=== PATIENT | female | born 1960 | race African-American/Black ===

== ENCOUNTER 2018-10-21 14:40 | Inpatient (IN) | payer MEDICAID ==
[~2018-10-21] VITALS: Ht 165.1 cm; Wt 81.4 kg
[2018-10-21] VITALS (8 sets, daily range): BP systolic 90–131; BP diastolic 50–85; Ht 165.1 cm; Wt 81.4 kg
--- NOTE | ~2018-10-21 | HEMODYNAMI ---
PATIENT:FAUSTO DEL ROSARIO MEDICAL RECORD: [id number] : 56 LOCATION:[facility] D.2122 ADMISSION DATE: 10/21/18 Generatedon:10/22/201812:54 Patient name: FAUSTO DEL ROSARIO Patient #: [id number] SSN: : 1960 Date of study: 10/22/2018 Page: Of Hemodynamic Procedure Report Patient Data Patient Demographics Procedure consent was obtained First Name: FAUSTO Gender: Female Last Name: CARIN : 1960 Patient #: [id number] Age: 58 year(s) Race: Black Additional ID: [id number] Contact details Address: [address] [place] [address] STREET State: [place] City: [facility] Zip code: [address] Past Medical History Allergies: No known allergies Admission Admission Data Admission Date: 10/21/2018 Admission Time: 18:40 Arrival Date: 10/22/2018 Arrival Time: 0:00 Admit Source: Emergency Insurance Payor: None department Room #: D.2122 Height (in.): 64.96 BSA: 1.88 (m2) Height (cm.): 165 BMI: 29.75 (kg/m2) Weight (lbs.): 178.58 Weight (kg.): 81 Lab Results Lab Result Date: 10/22/2018 Lab Result Time: 5:49 Biochemistry Name Units Result Min Max BUN mg/dl 17 --(---*)-- 7 18 Creatinine mg/dl 1 --(--*-)-- 0.6 1.3 CBC Name Units Result Min Max Hematocrit % 32.4 *-(----)-- 42 54 Hemoglobin g/dl 11.1 *-(----)-- 13.5 17.5 Procedure Procedure Types Cath Procedure Diagnostic Procedure LHC LHC w/Coronaries Procedure Description Procedure Date Procedure Date: 10/22/2018 Procedure Start Time: 12:44 Procedure End Time: 12:51 Procedure Staff Name Function Ran Long MD Performing Physician Gricel Saxena RT Monitor Carl Cao RT Scrub Fred Moralez RN Nurse Gerardo Waddell RT Food And Beverage Manager Indication Angina Procedure Data Cath Procedure Fluoroscopy Diagnostic fluoroscopy Total fluoroscopy Time: 0.7 time: 0.7 min min Diagnostic fluoroscopy Total fluoroscopy dose: 227 dose: 227 mGy mGy Contrast Material Contrast Material Type Amount (ml) Isovue 300 43 Entry Location Entry Primary Successful Side Size Upsize Upsize Entry Closure Succes sful Closure Location (Fr) 1 (Fr) 2 (Fr) Remarks Device Remarks Femoral Right 5 Fr Exoseal artery Estimated blood loss: 5 ml Diagnostic catheters Device Type Used For End Catheter Placement MULTIPACK Pigtail 5 Fr Procedure catheter MULTIPACK JL 4.0 5Fr Procedure catheter MULTIPACK 3DRC 5Fr Procedure catheter Procedure Complications No complications Procedure Medications Medication Administration Route Dosage 0.9% NaCl I.V. 100 ml/hr Oxygen etCO2 Nasal cannula 2 l/min Heparin Flush Bag added to field 2 bags (1000units/500ml NS) Lidocaine 2% added to field 20 Versed I.V. 2 mg Fentanyl I.V. 100 mcg Hemodynamics Rest BSA: 1.88 (m2) HGB: 11.1 (g/dl) O2 Consumption: Estimated: 167.93 (ml/min) O2 Co nsumption indexed: Estimated:89.32 (ml/min/m) Heart Rate: 56 (bpm) Snapshots Pre Cath Intra NCS Post Cath Vital Signs Time Heart Resp SPO2 etCO2 NIBP Rhythm Pain Sedation Rate (ipm) (%) (mmHg) (mmHg) Status Level (bpm) 12:22:51 56 13 99 33.8 118/83(98) NSR 0 (11) 10(A) , No pain 12:27:01 56 13 99 38.3 105/81(91) NSR 0 (11) 10(A) , No pain 12:31:07 56 17 97 36 102/69(80) NSR 0 (11) 10(A) , No pain 12:35:15 57 17 97 37.6 98/66(82) NSR 0 (11) 10(A) , No pain 12:39:21 58 12 98 37.6 90/64(74) NSR 0 (11) 10(A) , No pain 12:43:24 56 14 98 38.3 96/63(79) NSR 0 (11) 9(A) , No pain 12:47:30 58 17 100 42 97/66(81) NSR 0 (11) 9(A) , No pain 12:51:36 55 8 99 40.6 96/63(80) NSR 0 (11) 9(A) , No pain Medications Time Medication Route Dose Verified Delivered Reason Notes Eff ectiveness by by 12:23:27 0.9% NaCl I.V. 100 Fred Fred Per ml/hr Naomy Moralez physician RN RN 12:23:38 Oxygen etCO2 2 Fred Fred for low 02 Nasal l/min Lorigan Lorigan sats cannula RN RN 12:23:51 Heparin Flush added 2 Fred Fred used for Bag to bags Lorigan Lorigan procedure (1000units/500ml field RN RN NS) 12:24:01 Lidocaine 2% added 20ml Fred Fred for local to vial Lorigan Lorigan anesthetic field RN RN 12:43:53 Versed I.V. 2 mg Fred Fred for Lorigan Lorigan sedation RN RN 12:44:01 Fentanyl I.V. 100 Fred Fred for mcg Lorigan Lorigan sedation RN electrician office Log Time Note 11:01:51 Informed consent obtained and on chart 11:04:03 Patient Weight : 178.58 lbs 11:04:07 Patient Height : 64.96 inches 11:04:12 Insurance Payor : None 11:04:14 Admit Source: Emergency department 11:04:16 Arrival Date: 10/22/2018 12:00:00 AM 11:05:13 Lab Result : Creatinine 1 mg/dl 11:05:13 Lab Result : BUN 17 mg/dl 11:05:13 Lab Result : Hematocrit 32.4 % 11:05:13 Lab Result : Hemoglobin 11.1 g/dl 11:06:00 ACC Patient presents with Non-STEMI CCS Anginal Class 4--Inability to carry out any physical activity w/o angina. Angina may occur at rest. 11:06:05 ACCPatient has been prescribed/administered the following anti-anginal medication within the last 2 weeks: None 11:06:08 Procedure Status Urgent Heart Cath (IP). 11:06:11 Time tracking: Regular hours (M-F 7:00 - 5:00) 11:06:15 Plan of Care:Hemodynamics will remain stable., Cardiac rhythm will remain stable., Comfort level will be maintained., Respiratory function will remain adequate., Patient/ family verbilizes understanding of procedure., Procedure tolerated without complication., Recovers from procedure without complications.. 11:06:23 H&P Date Dictated: 10/22/2018 Within 30 days and on chart.. 11:55:14 Carl Floreser RT(R) sent for patient. Start room use. 12:08:13 Diagnostic Cath Status : Urgent 12:08:53 Indication : Angina 12:10:16 Patient received from Med II to CCL 1 Alert and oriented. Tansferred to table in Supine position. 12:10:32 Warm blankets applied, and josé hugger turned on for patient comfort. 12:10:34 Correct patient and procedure confirmed by team. 12:10:36 ECG and BP/O2 sat monitors applied to patient. 12:10:43 Pre-procedure instructions explained to patient. 12:10:45 Pre-op teaching completed and patient verbalized understanding. 12:10:48 Family unavailable. 12:10:50 Patient NPO since Midnight. 12:10:58 Patient allergic to No known allergies 12:11:00 Is the patient allergic to Iodine/contrast media? No. 12:21:52 Vital chart was started 12:21:54 Baseline sample Acquired. 12:22:00 Rhythm: sinus bradycardia 12:22:01 Full Disclosure recording started 12:22:11 Is patient on blood thinner?No 12:22:13 Patient diabetic? No. 12:22:22 Patient not . Patient is over age 55. 12:22:46 Previous problem with sedation/anesthesia? No ? 12:22:47 Snore? Yes 12:22:48 Sleep apnea? No 12:22:50 Deviated septum? No 12:22:50 Opens mouth fully? Yes 12:22:51 Sticks out tongue? Yes 12:22:54 Dentures? No ? 12:22:57 Pre procedure: right dorsailis pedis pulse 2+ Normal; easily identifiable; not easily obliterated 12:23:04 Patient pain scale 0/10 ?. 12:23:08 IV patent on arrival in left antecubital with 0.9% NaCl at [facility]. 12:23:11 Lab results completed and on chart. 12:23:27 0.9% NaCl 100 ml/hr I.V. was administered by Fred Moralez RN; Per physician; 12:23:34 Right groin area was prepped with chlora-prep and draped in sterile fashion 12:23:35 Alarms reviewed by R. N. 12:23:36 Sharps counted by scrub and verified by R.N. 12:23:38 Oxygen 2 l/min etCO2 Nasal cannula was administered by Fred Moralez RN; for low 02 sats; 12:23:51 Heparin Flush Bag (1000units/500ml NS) 2 bags added to field was administered by Fred Moralez RN; used for procedure; 12:24:01 Lidocaine 2% 20ml vial added to field was administered by Fred Moralez RN; for local anesthetic; 12:27:09 Use device set Femoral Dx 12:27:20 ACIST Syringe (88825) opened to sterile field. 12:27:20 Bag Decanter (2002S) opened to sterile field. 12:27:26 ACIST Hand Control (79061) opened to sterile field. 12:27:28 ACIST Manifold (05182) opened to sterile field. 12:27:30 Tegaderm 4 x 4 (1626W) opened to sterile field. 12:27:33 Medline Cath Pack ([id number]) opened to sterile field. 12:27:37 DIAGNOSTIC Multipack 5Fr catheter set (TS2013) opened to sterile field. 12:27:59 SHEATH 5FR Allred (HIQ542) opened to sterile field. 12:28:01 EMERALD Guide Wire (707-541) opened to sterile field. 12:36:37 Zero performed for pressure channel P1 12:40:51 --------ALL STOP TIME OUT------ 12:40:51 Final Timeout: patient, procedure, and site verified with staff and physician. All members of the team are in agreement. 12:40:53 Right groin site verified by team. 12:41:00 Fire Safety Assessment: A--An alcohol-based skin anteseptic being used preoperatively., C--Open oxygen or nitrous oxide is being used., D--An ESU, laser, or fiber-optic light is being used. 12:41:04 Physical assessment completed. ASA score P 2 - A patient with mild systemic disease as per Ran Long MD. 12:41:17 2) 60-89 Mildly reduced kidney function, and other findings (as for stage 1) point to kidney disease. 12:41:21 Maximum allowable contrast dose (3.7 X eGFR X 0.75)203 ml. 12:41:26 Sedation plan: IV Moderate Sedation Medication:Versed, Fentanyl 12:43:53 Versed 2 mg I.V. was administered by Fred Moralez RN; for sedation; 12:44:01 Fentanyl 100 mcg I.V. was administered by Fred Moralez RN; for sedation; 12:44:25 Procedure started. 12:44:40 Local anesthetic to right femoral artery with Lidocaine 2% by Ran Long MD.INITIAL ACCESS ONLY 12:45:25 A 5 Fr sheath was inserted into the Right Femoral artery 12:45:44 A MULTIPACK Pigtail 5 Fr catheter was advanced over the wire and used for Procedure. 12:46:00 LV gram done using YO 12:46:02 Injector settings: Ml/sec: 10, Volume: 20, 12:46:19 EF : 70 % 12:46:21 Catheter removed. 12:46:28 A MULTIPACK JL 4.0 5Fr catheter was advanced over the wire and used for Procedure. 12:47:16 LCA angiography performed. 12:47:20 Catheter removed. 12:47:26 A MULTIPACK 3DRC 5Fr catheter was advanced over the wire and used for Procedure. 12:47:55 RCA angiography performed. 12:48:01 Catheter removed. 12:48:16 ACCDominant side:Left 12:48:51 EXOSEAL 5Fr (EX500) opened to sterile field. 12:49:04 Sheath removed intact; hemostasis achieved with Exoseal to the Right Femoral artery. 12:49:06 Procedure ended.(Physican Out) 12:49:54 Fluoroscopy time 00.70 minutes. 12:49:58 Fluoroscopy dose: 227 mGy 12:49:58 Flurop Dose total: 227 12:50:03 Dose Area Product 13279 mGy/cm. 12:50:07 Contrast amount:Isovue 300 43ml. 12:50:09 Maximum allowable dose exceeded? No. 12:50:10 Sharps counted by scrub and verified by R.N. 12:50:13 Post-op/insertion site Right Femoral artery dressed using a 4 x 4 and Tegaderm. 12:50:16 Post-procedure physical assessment completed. ASA score P 2 - A patient with mild systemic disease as per Ran Long MD. 12:50:19 Post procedure rhythm: sinus bradycardia 12:50:22 Estimated blood loss: 5 ml 12:50:23 Post procedure instruction explained to patient.Patient verbalizes understanding. 12:50:24 Patient needs reinforcement of post procedure teaching. 12:51:14 Procedure and supply charges have been captured, reviewed, submitted and are correct. 12:51:17 Procedure Complication : No complications 12:51:20 Vital chart was stopped 12:51:22 See physician's report for complete and final results. 12:51:27 Report given to [facility]. 12:51:30 Patient transfered to [facility] with Bed. 12:51:32 Procedure ended. 12:51:32 Full Disclosure recording stopped 12:51:37 End room use (Document Last) Device Usage Item Name Manufacture Quantity Catalog Hospital Part Current Minimal L ot# / Number Charge Number Stock Stock Serial# Code ACIST Acist 1 57268 291621 664898 [id number] 20 Syringe Medical (95265) Systems Inc Bag Microtek 1 483599 39708 148715 5 Decanter Medical Inc. () ACIST Hand Acist 1 49831 474984 741934 950020 5 Control Medical (89671) Systems Inc ACIST Acist 1 34912 044875 931929 749908 5 Manifold Medical (07767) Systems Inc Tegaderm 4 3M 1 1626W 494148 779571 148099 5 x 4 (1626W) Medline Medline 1 [id number] 407956 38589 342351 5 Cath Pack ([id number]) DIAGNOSTIC Cardinal 1 DK3709 117487 75393 976644 30 Multipack Filement 5Fr catheter set (QQ7820) SHEATH 5FR Terumo 1 RXS923 187544 834590 314361 5 Allred (JMS678) EMERALD Cardinal 1 502-902 635671 162372 487755 5 Guide Wire Health (502-415) MULTIPACK Cardinal 1 515210 5 Pigtail 5 Health Fr catheter MULTIPACK Cardinal 1 963231 5 JL 4.0 5Fr Filement catheter MULTIPACK Cardinal 1 661063 5 3DRC 5Fr Health catheter EXOSEAL 5Fr Cardinal 1 EX500 648147 808199 707803 10 (EX500) Health Signature Audit [place] Stage Time Signature Unsigned Intra-Procedure 10/22/2018 Gricel Saxena 12:54:02 PM RT(R) Signatures Performing Physician : Signature : Ran Long MD Date : Time : Monitor : Gricel Saxena Signature : RT Date : Time : Nurse : Fred Moralez Signature : RN Date : Time : [place] [address] [place] [address]
[2018-10-21 15:11] LABS: BASOPHILS 0.4 % (0-2); EOSINOPHILS 0.3 % (0-7); HEMATOCRIT 39.7 % (36.0-48.0); HEMOGLOBIN 13.8 g/dL (12-16); IMMATURE GRANULOCYTES 0.5 % (0-5); LYMPHOCYTES 28.5 % (15-50); MCH 30.4 pg (26.0-34.0); MCHC 34.8 g/dL (31.0-37.0); MCV 87.4 fL (80.0-100.0); MONOCYTES 2.8 % (2-11); NEUTROPHILS 67.5 % (40-80); PLATELET COUNT 263 10x3/uL (130-400); RBC 4.54 10x6/uL (4.00-5.40); RDW 13.9 % (11.5-14.5); WBC 7.9 10x3/uL (4.8-10.8)
[2018-10-21 15:24] LABS: ALBUMIN 4.6 g/dL (3.4-5.0); ANION GAP 29.1 mmol/L (8-16); BILIRUBIN - TOTAL 0.52 mg/dL (0.2-1.3); CALCIUM 10.6 mg/dL (8.5-10.1); CARBON DIOXIDE 15.4 mmol/L (21.0-32.0); CREATININE - SERUM 2.3 mg/dL (0.6-1.3); MAGNESIUM - SERUM 2.1 mg/dL (1.8-2.4); POTASSIUM - SERUM 3.5 mmol/L (3.5-5.1); PROTEIN - SERUM 9.5 g/dL (6.4-8.2)
--- NOTE | 2018-10-21 16:07 | NUR ---
PT TRANSPORTED TO CT
[2018-10-21 16:12] LABS: APTT 23.9 SECONDS (22.8-39.4); INR 1.13 (0.85-1.17)
[2018-10-21 16:32] LABS: CREATINE KINASE 622 UL (21-215); MAGNESIUM - SERUM 2.1 mg/dL (1.8-2.4)
--- NOTE | 2018-10-21 16:36 | NUR ---
CRITICAL TROPONIN OF 0.290 AT THIS TIME, NOTIFIED BY LAB. EDP NOTIFIED.
--- NOTE | 2018-10-21 16:39 | NUR ---
REPROT GIVEN TO LOLITA OWUSU. PT MOVED TO E15
[2018-10-21 16:46] LABS: UDS - AMPHET NEGATIVE QUAL (NEGATIVE); UDS - BARB NEGATIVE QUAL (NEGATIVE); UDS - BENZO POSITIVE QUAL (NEGATIVE); UDS - COCAINE POSITIVE QUAL (NEGATIVE); UDS - OPIATE NEGATIVE QUAL (NEGATIVE); UDS - PCP NEGATIVE QUAL (NEGATIVE); UDS - THC NEGATIVE QUAL (NEGATIVE)
--- NOTE | 2018-10-21 16:48 | NUR ---
MOVED TO ER#15. ASSUMED CARE OF PT. PT ALERT TO PERSON AND TIME. SPEECH SLOW AND SOFT. ANDREWS INDEPEPDNENTLY. VSS.
[2018-10-21 16:53] LABS: APPEARANCE HAZY (CLEAR); BILIRUBIN NEGATIVE (NEGATIVE); COLOR DK YELLOW (YELLOW); GLUCOSE NEGATIVE (NEGATIVE); KETONE NEGATIVE (NEGATIVE); NITRITE NEGATIVE (NEGATIVE); PROTEIN 1+ mg/dL (NEGATIVE); SPECIFIC GRAVITY 1.025 (1.005-1.020); UROBILINOGEN NORMAL (NORMAL)
[2018-10-21 16:54] LABS: EPITHELIAL CELLS 0-5 /hpf (0-5); RED CELLS - URINE 0-5 /hpf (0-5); WHITE CELLS - URINE 0-5 /hpf (0-5)
[2018-10-21 16:55] LABS: BACTERIA MODERATE /hpf (NONE SEEN)
--- NOTE | 2018-10-21 18:11 | NUR ---
RESTIN GIN BED WITH EYES CLOSED AROUSES EASIOY WHEN NAME CALLED THEN RTNS TO JINNY[P
--- NOTE | 2018-10-21 19:10 | NUR ---
BS REPORT TO LOLITA CRUZ BY SBAR FORMAT
--- NOTE | 2018-10-21 19:46 | NUR ---
LAB CALLED TO REPORT CRICTAL LAB, CALLED ER TO INFORM NURSE ANTHONY BECAUSE PATIENT IS STILL IN ER AND SHE STATED SHE ALREADY GAVE REPORT TO DARWIN AND SHE WILL BE BRINGING HER UP SHORTLY. ASKED IS SHE WANTED TO INFORM DOCTOR AND SHE STATED THAT THE PATIENT IS ALREADY ADMITTED TO DR. ALMONTE. INFORMED MY CUTLET MAKER PORK JANE AND RECIEVING LOLITA GRANADOS.
--- NOTE | 2018-10-21 20:03 | NUR ---
PT ARRIVES VIA STRETCHER FROM ER TO BED LOW AND LOCKED AND CALL LIGHT IS PROVIDED PT IS LETHARGIC AT THIS TIME AND IS A FULL ASSIST OVER TO BED O2 APPLIED AT 2L ED AND FARZANEH WAS IN PT TO GRAVITY LCTA AND SKIN WARM AND DRY PULSES ARE INTACT VS 102/59 76 18 98.6 100% ON 2L
--- NOTE | 2018-10-21 20:13 | NUR ---
PT CONT TO BE LETHARGIC LIMITED HISTORY GIVEN BY PT AND UNKNOWN IF HISTORY IS ACURATE PT STATES SHE TAKES MEDS BUT WILL NOT STATE WHAT MEDS SHE TAKES AT THIS TIME
--- NOTE | 2018-10-21 20:25 | NUR ---
LACTIC ACID LEVEL 8.5. CALLED TO RACHAEL KAT. HE STATES TO KEEP AN EYES ON PT AND CALL IF PT IS NO MORE LETHARGIC AND CAN TALK OR IF THEIR IS ANY SIGNIFICANT CHANGE.
[2018-10-21 22:33] LABS: CKMB 19.4 U/L (0.0-3.6)
[2018-10-21 22:34] LABS: CREATINE KINASE 1717 UL (21-215)
[2018-10-21 22:37] LABS: TROPONIN-I 0.641 ng/mL (0.000-0.060)
--- NOTE | 2018-10-21 23:05 | NUR ---
RECIEVED PT'S TROPONIN I CRITICAL OF 0.641. RESULT CALLED TO [facility]. RACHAEL ORDERED CARDIAC ENZYMES LABS FOR AM. PERFORMED ANOTHER EKG AT THIS TIME. EKG NS WITH RIGH BBB. PT IS MORE ALERT NOW, BUT STILL APPEARS LETHARGIC. MOY INTACT. BANNANA BAG/NS INFUSING @ 125MLS/HR. NO S/S OF DISTRESS. VSS. WILL CPOC. CL WITHIN REACH, BED IN LOW, SR UP X2.
[2018-10-22] VITALS: BP 100/62
[2018-10-22 04:30] VITALS: BP 110/75
[2018-10-22 06:36] LABS: BASOPHILS 0.1 % (0-2); EOSINOPHILS 0 % (0-7); HEMATOCRIT 32.4 % (36.0-48.0); HEMOGLOBIN 11.1 g/dL (12-16); IMMATURE GRANULOCYTES 0.2 % (0-5); LYMPHOCYTES 24.3 % (15-50); MCH 29.6 pg (26.0-34.0); MCHC 34.3 g/dL (31.0-37.0); MCV 86.4 fL (80.0-100.0); MEAN PLATELET VOLUME 11.1 fL (7.4-10.4); MONOCYTES 11.9 % (2-11); NEUTROPHILS 63.5 % (40-80); RBC 3.75 10x6/uL (4.00-5.40); RDW 14.2 % (11.5-14.5); WBC 8.9 10x3/uL (4.8-10.8)
[2018-10-22 06:41] LABS: PLATELET COUNT 172 10x3/uL (130-400)
--- NOTE | 2018-10-22 06:50 | NUR ---
REPORT RECEIVED. SHE ANSWERS TO NAME. SHE IS ABLE TO TELL ME WHERE SHE IS AND FOLLOW ALL VERBAL COMMANDS TO MOVE EXT. F/C PATENT WITH YELLOW URINE DRAINING. RESP SHALLOW BUT EVEN. IV INFUSING IN LEFT HAND WITH SALINE LOCK IN RIGHT A/C. O2 ON AT 2 L/M PER N/C. CAREPLAN REVIEWED WITH SAFETY PRECAUTIONS IN PLACE. BED IN LOWEST POSITION AND LOCKED.
[2018-10-22 07:36] LABS: ALKALINE PHOSPHATASE 46 U/L (46-116); ALT (SGPT) 43 U/L (10-68); BILIRUBIN - TOTAL 0.63 mg/dL (0.2-1.3); CHLORIDE - SERUM 108 mmol/L (98-107); POTASSIUM - SERUM 3.7 mmol/L (3.5-5.1); SODIUM 141 mmol/L (136-145); UREA NITROGEN 17 mg/dL (7-18)
[2018-10-22 07:38] LABS: ALBUMIN 3.2 g/dL (3.4-5.0); CALC OSMOLALITY 281 mosm/kg (275-300); CARBON DIOXIDE 22.7 mmol/L (21.0-32.0); CREATINE KINASE 2086 UL (21-215); GLUCOSE 82 mg/dL (74-106); MAGNESIUM - SERUM 2.8 mg/dL (1.8-2.4); PROTEIN - SERUM 6.7 g/dL (6.4-8.2); eGFR NON AFRICAN AMERICAN 60 mL/min (90-120)
[2018-10-22 07:56] VITALS: BP 97/64
[2018-10-22 11:26] VITALS: BP 120/89
[2018-10-22 11:45] LABS: CKMB 15.6 U/L (0.0-3.6); CREATINE KINASE 1917 UL (21-215)
[2018-10-22 11:46] LABS: TROPONIN-I 0.187 ng/mL (0.000-0.060)
--- NOTE | 2018-10-22 13:16 | NUR ---
RETURN FROM CRIMINAL DEFENSE ATTORNEY. RIGHT GROIN DRESSING D/I. RESP EVEN WITHOUT LABOR. BBS ARE CLEAR. 100%O2 SAT ON 2L/M PER N/C, 101/72, 16, HR 54. SHE AROUSES TO VERBAL STIMULI BUT IS DROWSY. TEMP 97.9. CL IN REACH. SHE IS REMINDED TO KEEP LEG STRAIGHT AND HEAD FLAT.
[2018-10-22 13:26] VITALS: BP 101/72
[2018-10-22] MEDS ORDERED: OMEPRAZOLE20 M1 PO (15:04)
[2018-10-22] MEDS ORDERED: NORVASC2.5 MG PO (15:05)
[2018-10-22] MEDS ORDERED: ZOLOFT100 MG PO (15:05)
[2018-10-22] MEDS ORDERED: NEURONTIN 300300 MG PO (15:07)
[2018-10-22] MEDS ORDERED: NEURONTIN600 MG PO (15:09)
[2018-10-22] MEDS ORDERED: BUSPAR10 MG PO (15:11)
[2018-10-22] MEDS ORDERED: TIROSINT88 MCG PO (15:12)
--- NOTE | 2018-10-22 18:26 | NUR ---
RIGHT GROIN SITE REMAINS CLEAR, NO HEMATOMA, SWELLING OR BRUISING NOTED. SHE IS ALERT AND OFFERS NO C/O. CL IN REACH. SHE HAS BEEN VISITING AND TALKING ON HER PHONE ON AND OFF ALL DAY. DESIREES
[2018-10-22 20:00] VITALS: BP 99/52
--- NOTE | 2018-10-22 20:21 | NUR ---
PT RESTING IN BED ALERT AND ORIENTED X4. RR EVEN AND UNLABORED. NO S/S OF DISTRESS AT THIS TIME. BED LOW CALL LIGHT WITHIN REACH. WILL CONTINUE TO MONITOR.
[2018-10-23] VITALS: BP 100/70
--- NOTE | 2018-10-23 00:10 | NUR ---
CHANGED PT'S BAG OF NORMAL SALINE BAG. PT ALERT AND ORIENTED AT THIS TIME. BED LOW CALL LIGHT WITHIN REACH. WILL CONTINUE TO MONITOR.
[2018-10-23 04:30] VITALS: BP 106/72
[2018-10-23 05:42] LABS: BASOPHILS 0.1 % (0-2); EOSINOPHILS 0.3 % (0-7); HEMATOCRIT 30.7 % (36.0-48.0); HEMOGLOBIN 10.4 g/dL (12-16); IMMATURE GRANULOCYTES 0.1 % (0-5); LYMPHOCYTES 38.5 % (15-50); MCH 29.5 pg (26.0-34.0); MCHC 33.9 g/dL (31.0-37.0); MCV 87.2 fL (80.0-100.0); MEAN PLATELET VOLUME 11.1 fL (7.4-10.4); MONOCYTES 6.6 % (2-11); NEUTROPHILS 54.4 % (40-80); PLATELET COUNT 165 10x3/uL (130-400); RBC 3.52 10x6/uL (4.00-5.40); RDW 14.6 % (11.5-14.5); WBC 7.1 10x3/uL (4.8-10.8)
[2018-10-23 06:29] LABS: ALBUMIN 2.7 g/dL (3.4-5.0); ALKALINE PHOSPHATASE 41 U/L (46-116); ALT (SGPT) 37 U/L (10-68); BILIRUBIN - TOTAL 0.29 mg/dL (0.2-1.3); CALC OSMOLALITY 281 mosm/kg (275-300); CALCIUM 7.6 mg/dL (8.5-10.1); CARBON DIOXIDE 21.6 mmol/L (21.0-32.0); CHLORIDE - SERUM 110 mmol/L (98-107); CREATININE - SERUM 0.9 mg/dL (0.6-1.3); GLUCOSE 93 mg/dL (74-106); MAGNESIUM - SERUM 2.1 mg/dL (1.8-2.4); PHOSPHOROUS 2.4 mg/dL (2.5-4.9); POTASSIUM - SERUM 3.7 mmol/L (3.5-5.1); PROTEIN - SERUM 5.9 g/dL (6.4-8.2); SODIUM 141 mmol/L (136-145); UREA NITROGEN 16 mg/dL (7-18); eGFR NON AFRICAN AMERICAN 68 mL/min (90-120)
[2018-10-23 06:36] LABS: CKMB 5.3 U/L (0.0-3.6); CREATINE KINASE 1168 UL (21-215)
--- NOTE | 2018-10-23 06:55 | NUR ---
REPORT RECEIVED. SHE IS RESTING WITH EASE RESP EVEN WITHOUT LABOR. F/C PATENT WITH LIGHT SCHUYLER URINE DRAINING, O2 ON AT 2 L/M PER N/C. IV SITE CLEAR INFUSING NS AT 100CC/HR. CAREPLAN REVIEW DONE WITH SAFETY PRECAUTIONS IN PLACE. BED IN LOWEST POSITION AND LOCKED. CL IN REACH
[2018-10-23 08:00] VITALS: BP 107/75
[2018-10-23 12:45] VITALS: BP 125/86
--- NOTE | 2018-10-23 14:17 | NUR ---
F/C D/C AT THIS TIME MELINDA WELL. REQUEST OZ FOR HER NERVES. SHE HAS BEEN UP IN CHAIR IN ROOM SINCE THIS AM. ABLE TO AMBULATE TO THE BATHROOM AND HAVE SMALL BM NO C/O CL IN REACH
[2018-10-23] MEDS ORDERED: OMNICEF300 MG PO (15:31)
[2018-10-23 16:58] VITALS: BP 118/86
--- NOTE | 2018-10-23 17:30 | NUR ---
DISCHARGE INSTRUCTIONS EXPLAINED IN DETAIL. IV AND SALINE LOCK WERE BOTH REMOVED WITH CATH TIP INTACT, MINIMAL BLEEDING. TELEMENTRY RETURNED TO SPANISH SPEAKING NANNY. SHE DID URINATE 250 CC OF YELLOW URINE. SHE LEFT VIA W/C TO PRIVATE AUTO WITH NO C/O AND IN STABLE CONDITION
--- NOTE | 2018-10-23 17:58 | MORECARE ---
CASE MANAGEMENT DISCHARGE SUMMARY PATIENT: FAUSTO DEL ROSARIO UNIT: [id number] ADM DATE: 10/21/18 AGE: 58 : 56 SEX: F ROOM/BED: D.2602 AUTHOR: RUSSELL SULLIVAN PHYSICIAN: REFERRING PHYSICIAN: GHASSAN ALMONTE MD DATE OF SERVICE: 10/23/18 Discharge Plan Patient Name: FAUSTO DEL ROSARIO Facility: [facility]:[place] : 1960 Planned Disposition: Home Anticipated Discharge Date: 10/23/18 Discharge Date: Expected LOS: 2 Initial Reviewer: [email or web address] Initial Review Date: 10/23/2018 Generated: 10/23/18 6:58 pm Comments DCP- Discharge Planning Updated by [email or web address]: Dru Anand on 10/23/18 4:[address] Patient Name: FAUSTO DEL ROSARIO Admission Status: ER Accout number: [id number] Admission Date: 10-21-2018 : 1960 Admission Diagnosis: Attending: GHASSAN KOHLI Current LOS: 2 Anticipated DC Date: 10-23-2018 Planned Disposition: Home Primary Insurance: [place]ICAID [place] Discharge Planning Comments: CM MET WITH PT IN ROOM TO DISCUSS DISCHARGE PLANNING AND NEEDS. PT REPORTS LIVING AT HOME INDEPENDENTLY AND ALONE. PT HAS A CANE SHE USES NEEDED WITH NO MEDICAL EQUIPMENT PROVIDER PREFERNECE. PT HAS NO OUTSIDE SERVICES ASSISTING IN THE HOME. CM DISCUSSED AVAILABILITY OF HOME HEALTH, REHAB SERVICES AND MEDICAL EQUIPMENT. PT DENIES DISCHARGE NEEDS, REPORTS HER FAMILY WILL PICK HER UP FOR DISCHARGE HOME. CM DISCUSSED POSITIVE COCAINE TESTING UPON ADMISSION TO HOSPITAL. PT DENIES COCAINE USE, STATES SHE HAS NOT USED SINCE 2011. PT REPORTS SHE HAS BEEN TO TREATMENT IN THE PAST, DENIES ADDICTION AT THIS TIME AND DENIES NEED FOR TREATMENT INFORMATION OR INFORMATION REGARDING COMMUNITY SUPPORT INFORMATION FOR ADDICTIONS. PT REPORTS ATTENDING [facility] ONCE EVERY TWO WEEKS FOR DEPRESSION AND ANXIETY. PT DENIES DISCHARGE NEEDS. CUSTOMER ADVISOR SPECIALIST NURSE NOTIFIED. Electrotyper Helper: Dru Anand DCPIA - Discharge Planning Initial Assessment Updated by [email or web address]: Dru Anand on 10/23/18 5:52 pm * Is the patient Alert and Oriented? Yes * How many steps to enter\exit or inside your home? 10 * PCP DR. LUIS WALKER, [facility] * Pharmacy [facility] [address] * Preadmission Environment Home Alone * ADLs Independent * Equipment Cane * Other Equipment NO MEDICAL EQUIPMENT PROVIDER PREFERENCE * List name and contact numbers for known caregivers / representatives who currently or will assist patient after discharge: ADRIANE HIRSCH, FRIEND, * Verbal permission to speak to the caregivers and representatives has been obtained from the patient. N/A * Community resources currently utilized None * Please name any agencies selected above. NONE * Additional services required to return to the preadmission environment? No * Can the patient safely return to the preadmission environment? Yes * Has this patient been hospitalized within the prior 30 days at any hospital? No Patient Name: FAUSTO DEL ROSARIO Page [id number] at 1758 All edits/amendments must be made on the electronic document DICTATION DATE: 10/23/181757 COMMERCIAL FINANCE MANAGER: MARTÍN 10/23/181757 RPT#: [id number] DC DATE: STATUS: ADM IN [facility] [address] [place] [address] END OF REPORT
[2018-10-26 14:08] LABS: IMMUNOGLOBULIN E 601 IU/mL (6-495)
--- NOTE | 2018-10-29 14:31 | EC ---
PATIENT:FAUSTO DEL ROSARIO DATE OF SERVICE: 10/21/18 SEX: F MEDICAL RECORD: [id number] DATE OF : [birth year] LOCATION:D. D.212 AGE OF PATIENT: 58 ADMISSION DATE: 10/21/18 REFERRING PHYSICIAN: INTERPRETING PHYSICIAN: DORETHA JARAMILLO MD ECHOCARDIOGRAM REPORT ECHO CHARGES 4 ECHO COMPLETE Date: 10/22/18 CLINICAL DIAGNOSIS: ELEVATED TROPONIN, HX HTN,REFLUX,ANXIETY ECHOCARDIOGRAPHIC MEASUREMENTS (adult normal given) AC root (d.<3.7cm) 3.5 cm LV Septum d (<1.2 cm> 1.4 cm Valve Excursion 1.5 cm LV Septum (systole) 1.8 cm Left Atria (s.<4.0cm> 3.6 cm LVPW d(<1.2cm) 1.8 cm RV (d.<2.3cm) 4.7 cm LVPW (sytole) 2.2 cm LV diastole(<5.6CM) 4.7 cm MV E-F(>70mm/sec) cm LV systole 2.8 cm LVOT Diameter 2.0 cm MV exc.(>10mm) 1.4 cm Est.ejection fraction (50-75%) % DOPPLER: LVIT cm/sec A 81.0 cm/sec E 93.0 cm/sec LA cm/sec RVSP 33 mmHg LVOT 185 cm/sec AOP1/2T m/s Asc. Ao 232 cm/sec RVOT cm/sec RA cm/sec PA 146 cm/sec AV Gradient Peak 21.36mmHg AV Mean 10.49mmHg AV Area 2.5 cm MV Gradient Peak 4.30 mmHg MV Mean 1.59 mmHg MV Area cm COMMENTS: Well Logging Captain: Roby SOUZA Construction Project Assistant: 3 Dr. Mata TAPE# PACS Pericardial Effusion N DATE OF SERVICE: 10/22/2018 PROCEDURE: Echocardiogram. FINDINGS: 1. Left ventricular chamber size is within normal limits. Left ventricular systolic function is normal at 60%. 2. Left atrium is within normal limits at 3.6 cm. Right atrium and right ventricular chamber sizes are mildly dilated. 3. Valvular structures have normal structure and motion. ECHOCARDIOGRAM REPORT [id number] FAUSTO DEL ROSARIO 4. Doppler interrogation reveals mild tricuspid regurgitation, no other valvular insufficiency or stenosis. Pulmonary systolic pressure is estimated 33 mmHg. 5. No evidence of pericardial effusion or left ventricular thrombus. TRANSINT:[id number] Voice Confirmation ID: [id number] DOCUMENT ID: [id number] DORETHA JARAMILLO MD at 1431 CC: [id number] DICTATION DATE: 10/23/18 1218 LEVELER: 10/23/18 1236 DIS IN 10/23/18 [place] [id number] [place] [id number]
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
== END 2018-10-23 17:30 | disposition home or self-care (01) | DRG 280 ==
LOC: D.ER 14:40 → EDBD 14:40 → D.M2 18:40
PROVIDERS: Family Medicine; Internal Medicine Interventional Cardiology; Internal Medicine Pulmonary Disease; ADMIT Family Medicine Adult Medicine; ATTEND Family Medicine Adult Medicine
PROC: B2151ZZ Fluoroscopy of Left Heart using Low Osmolar Contrast (ICD-10-PCS; 2018-10-22)
PROC: 4A023N7 Measurement of Cardiac Sampling and Pressure, Left Heart, Percutaneous Approach (ICD-10-PCS; 2018-10-22)
PROC: B2111ZZ Fluoroscopy of Multiple Coronary Arteries using Low Osmolar Contrast (ICD-10-PCS; principal; 2018-10-22 11:55)
DX: I21.A1 Myocardial infarction type 2 (principal); J69.0 Pneumonitis due to inhalation of food and vomit; T67.0XXA Heatstroke and sunstroke, initial encounter; M62.82 Rhabdomyolysis; N17.9 Acute kidney failure, unspecified; I25.10 Atherosclerotic heart disease of native coronary artery without angina pectoris; X58.XXXA Exposure to other specified factors, initial encounter; F14.90 Cocaine use, unspecified, uncomplicated; Z72.89 Other problems related to lifestyle; I95.9 Hypotension, unspecified; K21.9 Gastro-esophageal reflux disease without esophagitis; D64.9 Anemia, unspecified; E03.9 Hypothyroidism, unspecified; F41.9 Anxiety disorder, unspecified; F32.9 Major depressive disorder, single episode, unspecified; J44.9 Chronic obstructive pulmonary disease, unspecified

== ENCOUNTER 2018-12-08 22:49 | Emergency (ER) | payer MEDICAID ==
[~2018-12-08] VITALS: Ht 165.1 cm; Wt 74.5 kg
[~2018-12-08 22:49] MED LIST: BUSPAR10 MG PO; NEURONTIN 300300 MG PO; NEURONTIN600 MG PO; NORVASC2.5 MG PO; OMEPRAZOLE20 M1 PO; OMNICEF300 MG PO; TIROSINT88 MCG PO; ZOLOFT100 MG PO
[2018-12-08 22:54] VITALS: Ht 165.1 cm; Wt 74.5 kg
[2018-12-08] MEDS ORDERED: NAPROSYN500 MG PO (22:55)
[2018-12-08] MEDS ORDERED: AFRIN15 ML NASAL (22:56)
[2018-12-08 23:32] VITALS: BP 139/93
== END 2018-12-08 23:33 | disposition home or self-care (01) ==
LOC: D.ER 22:49
DX: F41.9 Anxiety disorder, unspecified (principal); R42 Dizziness and giddiness

== ENCOUNTER 2020-07-24 12:10 | Emergency (ER) | payer MEDICARE ==
[~2020-07-24] VITALS: Ht 165.1 cm; Wt 75.0 kg
[~2020-07-24 12:10] MED LIST changes: +AFRIN15 ML NASAL; +NAPROSYN500 MG PO
[2020-07-24 12:26] VITALS: BP 110/70; Ht 165.1 cm; Wt 75.0 kg
[2020-07-24] MEDS ORDERED: BUSPAR10 MG PO (12:33)
[2020-07-24 13:12] LABS: BASOPHILS 0.7 % (0-2); EOSINOPHILS 0.9 % (0-7); HEMATOCRIT 40.9 % (36.0-48.0); HEMOGLOBIN 13.6 g/dL (12-16); LYMPHOCYTES 31.3 % (15-50); MCH 29.7 pg (26.0-34.0); MCHC 33.3 g/dL (31.0-37.0); MCV 89.3 fL (80.0-100.0); MEAN PLATELET VOLUME 8.2 fL (7.4-10.4); NEUTROPHILS 59.1 % (40-80); RBC 4.58 10x6/uL (4.00-5.40); WBC 7.8 10x3/uL (4.8-10.8)
[2020-07-24 13:14] LABS: PLATELET COUNT 270 10x3/uL (130-400)
[2020-07-24 13:19] LABS: APTT 29.8 SECONDS (22.8-39.4); INR 1.02 (0.85-1.17); PROTIME 12.4 SECONDS (11.6-15.0)
[2020-07-24 13:23] LABS: ANION GAP 11.4 mmol/L (8-16); CALCIUM 9.7 mg/dL (8.5-10.1); CREATININE - SERUM 1.3 mg/dL (0.6-1.3); POTASSIUM - SERUM 3.4 mmol/L (3.5-5.1)
[2020-07-24 13:26] LABS: ALBUMIN 4.2 g/dL (3.4-5.0); BILIRUBIN - TOTAL 0.51 mg/dL (0.2-1.3); PROTEIN - SERUM 8.9 g/dL (6.4-8.2)
[2020-07-24] MEDS ORDERED: ACETAMINOPHEN500 M1 PO (14:05)
[2020-07-24] MEDS ORDERED: CYCLOBENZAPRINE10 MG PO (14:05)
[2020-07-24] MEDS ORDERED: IBUPROFEN800 MG PO (14:05)
== END 2020-07-24 15:25 | disposition home or self-care (01) ==
LOC: D.ER 12:10
PROVIDERS: Family Medicine
DX: M54.9 Dorsalgia, unspecified (principal); M54.2 Cervicalgia; M79.10 Myalgia, unspecified site; T14.8XXA Other injury of unspecified body region, initial encounter; I10 Essential (primary) hypertension; V89.2XXA Person injured in unspecified motor-vehicle accident, traffic, initial encounter; Y93.9 Activity, unspecified; Y92.9 Unspecified place or not applicable

== ENCOUNTER 2020-08-08 11:01 | Emergency (ER) | payer OTHER, MEDICARE ==
[~2020-08-08] VITALS: Ht 165.1 cm; Wt 68.2 kg
[~2020-08-08 11:01] MED LIST changes: +ACETAMINOPHEN500 M1 PO; +CYCLOBENZAPRINE10 MG PO; +IBUPROFEN800 MG PO
[2020-08-08 11:33] VITALS: Ht 165.1 cm; Wt 68.2 kg
[2020-08-08 13:41] VITALS: BP 144/104
[2020-08-08] MEDS ORDERED: ULTRAM50 MG PO (14:30)
[2020-08-08] MEDS ORDERED: NAPROSYN500 MG PO (14:30)
== END 2020-08-08 15:02 | disposition home or self-care (01) ==
LOC: D.ER 11:01
DX: M79.10 Myalgia, unspecified site (principal); V89.2XXD Person injured in unspecified motor-vehicle accident, traffic, subsequent encounter